=== PATIENT | male | born 1995 | race Caucasian/White ===

== ENCOUNTER 2017-03-11 20:02 | Emergency (ER) | payer SELFPAY ==
[~2017-03-11] VITALS: Ht 182.9 cm; Wt 113.4 kg
[2017-03-11 20:05] VITALS: BP_SYST 140
--- NOTE | 2017-03-11 20:05 | NUR ---
Patient to ER bed 2 to gown for evaluation. Side rails up.
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
--- NOTE | 2017-03-11 20:30 | NUR ---
ER at bedside examining patient.
[2017-03-11 21:26] VITALS: BP_SYST 132
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
== END 2017-03-11 21:26 ==
LOC: EDBD 20:02 → SED 20:02
DX: S20.02XA Contusion of left breast, initial encounter (principal); S30.0XXA Contusion of lower back and pelvis, initial encounter; Z88.0 Allergy status to penicillin; W34.09XA Accidental discharge from other specified firearms, initial encounter; Y93.89 Activity, other specified; Y92.89 Other specified places as the place of occurrence of the external cause; Y99.8 Other external cause status
CPT/HCPCS: 99283